=== PATIENT | female | born 1980 | race American Indian/Alaskan Native ===

== ENCOUNTER 2016-09-15 08:14 | Emergency (ER) | payer MEDICAID ==
[2016-09-15 09:21] LABS: Basophils % (Auto) 0.7 % (0.0-1.8); Eosinophils % (Auto) 3.3 % (0.0-4.3); Hematocrit 29.8 % (30.3-42.9); Hemoglobin 9.1 gm/dl (10.1-14.3); Mean Corpuscular HGB Conc 31 % (30-34); Platelet Count 277 K/mm3 (140-440); Red Blood Count 4.66 M/mm3 (3.65-5.03); White Blood Count 9.6 K/mm3 (4.5-11.0)
[2016-09-15 09:35] LABS: Mean Corpuscular Hemoglobin 20 pg (28-32); Mean Corpuscular Volume 64 fl (79-97); Red Cell Distribution Width 20.3 % (13.2-15.2)
[2016-09-15 09:39] LABS: Anion Gap 20 mmol/L; Blood Urea Nitrogen 9 mg/dL (7-17); Carbon Dioxide 23 mmol/L (22-30); Chloride 99.3 mmol/L (98-107); Glucose 90 mg/dL (65-100); Potassium 4.3 mmol/L (3.6-5.0); Sodium 138 mmol/L (137-145)
[2016-09-15 11:41] LABS: Calcium 9.7 mg/dL (8.4-10.2)
--- NOTE | 2016-09-15 22:56 | Emergency Department Report ---
HPI - General Chief Complaint: Chest Pain Time Seen by Provider: 09/15/16 22:38 - HPI HPI: This is a 36-year-old Afro-Mexican female who is about 4 months who presents the emergency department with a 2 to three-day history of intermittent sternal nonradiating chest pain and a one day history of some vaginal spotting. Patient currently denies any chest discomfort. There is been no shortness of breath, back pain, diaphoresis or fever. The vaginal spotting was very mild and she denies any significant abdominal discomfort. Patient is about 4 months . She is with 2 live children and one previous . She is not currently having a [employer] but is taking vitamins. She had not taken anything for symptoms prior to presentation. No recent travel or sick contacts at home. She denies any history of NH, CVA, PE/DVT. ED Past Medical Hx - Past Medical History Hx Asthma: Yes - Surgical History Additional Surgical History: X 2 - Social History Smoking Status: Never Smoker Substance Use Type: None ED Review of Systems ROS: Stated complaint: 4 MO PREG/BLEEDING/CHEST PAIN Other details as noted in HPI Comment: All other systems reviewed and negative Constitutional: denies: chills, fever Eyes: denies: eye pain, eye discharge, vision change ENT: denies: ear pain, throat pain Respiratory: denies: cough, shortness of breath, wheezing Cardiovascular: chest pain. denies: palpitations Gastrointestinal: denies: abdominal pain, diarrhea Genitourinary: denies: urgency, dysuria, discharge Musculoskeletal: denies: back pain, joint swelling, arthralgia Skin: denies: rash, lesions Neurological: denies: headache, weakness, paresthesias Physical Exam - Physical Exam Vital Signs: Vital Signs 09/15/16 09/15/16 08:52 22:51 Temperature 98.0 F 97.9 F Pulse Rate 67 80 Respiratory 18 14 Rate Blood Pressure 111/74 Blood Pressure 132/76 [Left] O2 Sat by Pulse 100 100 Oximetry Physical Exam: GENERAL: The patient is well-developed well-nourished. HEENT: Normocephalic. Atraumatic. Extraocular motions are intact. Patient has moist mucous membranes. Pupils equal reactive to light bilaterally. NECK: Supple. Trachea is midline. CHEST/LUNGS: Clear to auscultation. There is no respiratory distress noted. HEART/CARDIOVASCULAR: Regular. There is no tachycardia. There is no gallop rub or murmur. ABDOMEN: Abdomen is soft, nontender. Patient has normal bowel sounds. There is no abdominal distention. SKIN: Warm and dry. NEURO: The patient is awake, alert, and oriented. The patient is cooperative. The patient has no focal neurologic deficits. The patient has normal speech. No gait abnormalities. MUSCULOSKELETAL: There is no tenderness or deformity. There is no limitation range of motion. There is no evidence of acute injury. ED Course Vital Signs 09/15/16 09/15/16 08:52 22:51 Temperature 98.0 F 97.9 F Pulse Rate 67 80 Respiratory 18 14 Rate Blood Pressure 111/74 Blood Pressure 132/76 [Left] O2 Sat by Pulse 100 100 Oximetry ED Medical Decision Making - Lab Data Result diagrams: 09/15/16 09:04 09/15/16 09:04 - EKG Data -: EKG Interpreted by Mi EKG shows normal: sinus rhythm, axis, intervals, QRS complexes, ST-T waves Rate: normal - EKG Data When compared to previous EKG there are: previous EKG unavailable Interpretation: normal EKG - Radiology Data Radiology results: report reviewed Intestinal/ ultrasound shows no evidence of intrauterine and a questionable uterine leiomyoma. - Medical Decision Making This is a 36-year-old female who presents the emergency department with 2 complaints. First the patient has been having some intermittent midsternal nonradiating chest pain over the past few days. However by the time the patient has gotten back to the main portion of the emergency department, she no longer has any chest pain. She never had any shortness of breath. Her EKG is normal sinus rhythm without any ST elevation NH, ischemia or dysrhythmia. Patient has negative troponins 3. She is low on the well's score criteria negative for the pulmonary elbows rule out criteria. The patient's second complaint is that she is allegedly about 4 months and had some spotting starting today. Patient was sent for a transvaginal/ ultrasound came back showing no evidence of intrauterine . After this, a quantitative beta hCG was obtained that was less than 2 which is basically 0. This either means that the patient had a false positive urine test originally or already had a spontaneous miscarriage. She only believed herself to be as she had a positive home test after missing a few menstrual cycles. Patient's vital signs stable throughout her ED course. She does have some mild anemia but not at the level that requires transfusion. She appears safe for discharge home at this time. She was given referrals for primary care and [facility]. She'll return to the ER with any worsening of her symptoms or any acute distress. - Differential Diagnosis costochondritis, NH, , miscarriage, fibroid Critical Care Time: No Critical care attestation.: If time is entered above; I have spent that time in minutes in the direct care of this critically ill patient, excluding procedure time. ED Disposition Clinical Impression: Chest pain Qualifiers: Chest pain type: unspecified Qualified Code(s): R07.9 - Chest pain, unspecified Anemia Qualifiers: Anemia type: unspecified type Qualified Code(s): D64.9 - Anemia, unspecified Fibroid Qualifiers: Uterine leiomyoma location: unspecified location Qualified Code(s): D25.9 - Leiomyoma of uterus, unspecified Disposition: DISCHARGED TO HOME OR SELFCARE Is pt being admited?: No Condition: Stable Instructions: Chest Pain (ED) Additional Instructions: Please follow-up with a primary care doctor in the next few days. Return to the emergency department with any worsening of your symptoms or any acute distress. I have also given you a referral for a [facility] F[facility]RICATOR to follow-up regarding the dysfunctional uterine bleeding and/or abnormal menstrual cycles. Referrals: MONICA PRINGLE MD [Primary Care Provider] - 3-5 Days NAVJOT CHRISTIAN MD [Staff Physician] - 3-5 Days MALU VILLAGOMEZ MD [Staff Physician] - 3-5 Days [facility] [Outside] - 3-5 Days Time of Disposition: 01:45
--- NOTE | 2016-09-15 23:59 | Ultrasound Report ---
FINAL REPORT PROCEDURE: Transabdominal pelvic ultrasound. TECHNIQUE: Real-time transabdominal sonography in multiple planes of pelvis was performed with image documentation. This examination was performed without Doppler. Vascular abnormalities, including ovarian torsion, will not be detectable without Doppler evaluation. CPT 41794 HISTORY: , vaginal bleeding. COMPARISON: No prior studies are available for comparison. FINDINGS: The uterus measures 10.3 centimeters x 5.9 centimeters x 6.3 centimeters. The myometrium is grossly normal. The endometrial echo complex is thickened measuring 2.8 centimeters. There is no definite intrauterine gestational sac identified. The right ovary is not adequately visualized. The left ovary is unremarkable. There is no fluid in the cul-de-sac. IMPRESSION: No definite intrauterine . Correlation with quantitative beta HCG value recommended.
--- NOTE | 2016-09-16 00:09 | Ultrasound Report ---
FINAL REPORT PROCEDURE: Transvaginal pelvic ultrasound. TECHNIQUE: Real-time transvaginal sonography in multiple planes of the pelvis was performed with image documentation. This examination was performed without Doppler. Vascular abnormalities, including ovarian torsion, will not be detectable without Doppler evaluation. CPT 71899 HISTORY: with vaginal bleeding. COMPARISON: No prior studies are available for comparison. FINDINGS: The myometrium is inhomogeneous. There may be a uterine fibroid present posteriorly. The endometrial echo complex is thickened. There is no evidence of a gestational sac. Correlation with a quantitative beta HCG value is recommended. Both ovaries appear normal in size and contain small follicles. There is normal ovarian color flow demonstrated. There is no fluid in the cul-de-sac. IMPRESSION: No evidence of an intrauterine . Question uterine leiomyoma.
[2016-09-16 00:23] LABS: Bacteria,Urine 1+ /HPF (Negative); Bilirubin,Urine NEG (Negative); Blood,Urine LG (Negative); Ketones,Urine 80 mg/dL (Negative); Leukocyte Esterase,Urine TR (Negative); Mucus,Urine FEW /HPF; Nitrite,Urine NEG (Negative); Urobilinogen,Urine < 2.0 mg/dL (<2.0)
[2016-09-16 00:24] LABS: RBC,Urine > 182.0 /HPF (0.0-6.0)
[2016-09-16] MEDS ORDERED: MACROBID PO ONE (00:33)
[2016-09-16 01:52] VITALS: BP 122/81
== END 2016-09-16 01:56 | disposition home or self-care (01) ==
LOC: ED 08:14
DX: O26.851 Spotting complicating pregnancy, first trimester (principal); R07.9 Chest pain, unspecified; D64.9 Anemia, unspecified; J45.909 Unspecified asthma, uncomplicated; D25.9 Leiomyoma of uterus, unspecified; Z3A.01 Less than 8 weeks gestation of pregnancy
CPT/HCPCS: 36415; 76801; 76817; 80048; 81001; 81025; 84484; 84702; 85025; 93005; 93010

== ENCOUNTER 2017-04-17 20:17 | Emergency (ER) | payer MEDICAID | END 2017-04-17 21:16 | disposition left against medical advice (07) | LOC: ED 20:17 | DX: R03.0 Elevated blood-pressure reading, without diagnosis of hypertension (principal); Z53.21 Procedure and treatment not carried out due to patient leaving prior to being seen by health care provider ==

== ENCOUNTER 2017-11-08 11:33 | Emergency (ER) | payer MEDICAID, OTHER ==
[2017-11-08 11:45] VITALS: BP 112/68
[2017-11-08] MEDS ORDERED: ZOFRAN ODT PO ONE ×2 (13:23→13:25)
[2017-11-08] MEDS ORDERED: ZOFRAN ODT ONE (13:28)
--- NOTE | 2017-11-08 13:38 | Emergency Department Report ---
Chief Complaint: Nausea/Vomiting/Diarrhea Stated Complaint: NAUSEA/VOMITING Time Seen by Provider: 11/08/17 12:55 - HPI History of Present Illness: 7-year-old female presents to the emergency department with complaint of a one-week history of nausea and vomiting that has been getting gradually worse. Now she feels slightly dizzy. She denies any abdominal pain other than some soreness from the vomiting. She has not taken anything for her symptoms by presentation. She has a primary care physician but has not seen them regarding symptoms. No recent travel or sick contacts at home. - ROS Review of Systems: Positive for nausea, vomiting Negative for fever, vaginal bleeding or discharge, dysuria - Exam Vital Signs: Vital Signs 11/08/17 11:43 Temperature 98.4 F Pulse Rate 73 Respiratory 18 Rate Blood Pressure 112/68 O2 Sat by Pulse 100 Oximetry Physical Exam: Patient is awake and alert. Heart and lungs sounds are normal and auscultation. Patient was seen running to the bathroom to vomit. MSE screening note: Focused history and physical exam performed. Due to findings the following was ordered: I have ordered a CBC, CMP, lipase, urinalysis and test. Patient was given Zofran ODT. I would have preferred to do IV Zofran and IV fluid resuscitation but the patient has to leave and 20 minutes to miner pick her children from school. ED Disposition for MSE Condition: Stable Referrals: PRIMARY MD PINO [Primary Care Provider] - 3-5 Days
[2017-11-08 13:48] LABS: Bilirubin,Urine NEG (Negative); Blood,Urine NEG (Negative); Color,Urine Yellow (Yellow); Mucus,Urine FEW /HPF; Urobilinogen,Urine < 2.0 mg/dL (<2.0)
[2017-11-08 14:18] LABS: Basophils # (Auto) 0.1 K/mm3 (0.0-0.1); Basophils % (Auto) 1.2 % (0.0-1.8); Eosinophils # (Auto) 0.1 K/mm3 (0.0-0.4); Eosinophils % (Auto) 2.1 % (0.0-4.3); Lymphocytes # (Auto) 1.8 K/mm3 (1.2-5.4); Lymphocytes % (Auto) 25.8 % (13.4-35.0); Mean Corpuscular HGB Conc 30 % (30-34); Monocytes # (Auto) 0.9 K/mm3 (0.0-0.8); Monocytes % (Auto) 13.2 % (0.0-7.3); Platelet Count 319 K/mm3 (140-440); Red Blood Count 4.71 M/mm3 (3.65-5.03); Red Cell Distribution Width 19.8 % (13.2-15.2)
[2017-11-08 14:21] LABS: Hematocrit 29.3 % (30.3-42.9); Hemoglobin 8.7 gm/dl (10.1-14.3); Mean Corpuscular Hemoglobin 19 pg (28-32); Mean Corpuscular Volume 62 fl (79-97)
[2017-11-08 14:45] LABS: Alanine Aminotransferase 11 units/L (7-56); Albumin 4.6 g/dL (3.9-5); BUN/Creatinine Ratio 15; Blood Urea Nitrogen 9 mg/dL (7-17); Calcium 9.8 mg/dL (8.4-10.2); Hemolysis Index 1
== END 2017-11-08 17:01 ==
LOC: ED 11:33
DX: R11.2 Nausea with vomiting, unspecified (principal); Z53.21 Procedure and treatment not carried out due to patient leaving prior to being seen by health care provider
CPT/HCPCS: 36415; 80053; 81001; 83690; 84702; 85025; Q0162

== ENCOUNTER 2017-11-10 21:17 | Emergency (ER) | payer OTHER ==
[2017-11-10 23:14] LABS: Basophils # (Auto) 0.1 K/mm3 (0.0-0.1); Eosinophils # (Auto) 0.4 K/mm3 (0.0-0.4); Eosinophils % (Auto) 5.3 % (0.0-4.3); Hematocrit 28.2 % (30.3-42.9); Hemoglobin 8.8 gm/dl (10.1-14.3); Lymphocytes # (Auto) 2.7 K/mm3 (1.2-5.4); Lymphocytes % (Auto) 34.2 % (13.4-35.0); Mean Corpuscular HGB Conc 31 % (30-34); Monocytes # (Auto) 1.1 K/mm3 (0.0-0.8); Monocytes % (Auto) 14.2 % (0.0-7.3); Platelet Count 292 K/mm3 (140-440); Red Blood Count 4.66 M/mm3 (3.65-5.03); Red Cell Distribution Width 19.4 % (13.2-15.2)
[2017-11-10 23:16] LABS: Mean Corpuscular Hemoglobin 19 pg (28-32); Mean Corpuscular Volume 60 fl (79-97)
[2017-11-10 23:17] LABS: Bilirubin,Urine NEG (Negative); Blood,Urine NEG (Negative); Color,Urine Yellow (Yellow)
[2017-11-10 23:20] LABS: HCG Qualitative,Urine Negative (Negative)
[2017-11-10 23:57] LABS: Alanine Aminotransferase 11 units/L (7-56); BUN/Creatinine Ratio 18; Blood Urea Nitrogen 11 mg/dL (7-17); Calcium 9.8 mg/dL (8.4-10.2); Hemolysis Index 0
--- NOTE | 2017-11-11 00:57 | Emergency Department Report ---
ED Abdominal Pain HPI - General Chief Complaint: Abdominal Pain Stated Complaint: STOMACH PAIN,VOMITING Time Seen by Provider: 11/11/17 00:55 Source: patient Mode of arrival: Ambulatory Limitations: No Limitations - History of Present Illness Initial Comments: 37-year-old -Armenian female comes into the ED complaining of lower abdominal pain nausea and vomiting for the last couple weeks. Patient ovaries recently seen on the fourth of this month for nausea and vomiting for a few weeks. Patient denies any fever denies any dysuria. Patient reports that she is having lower abdominal pain and groin pain worse with sneezing and coughing better with nothing she reports that the pain is sharp, constant no recent travels. She is sexually active with males protected one partner in the last 6 months. She also complains of dizziness. Patient denies any vaginal discharge reports that she is not able to eat or drink but can keep iced down. Patient's last menstrual period was 10/07/2017. She has a primary care provider but not has seen her for these symptoms. Patient has a past medical history of asthma currently takes no medications and has an allergy to penicillin. MD Complaint: abdominal pain - Related Data Allergies Allergy/AdvReac Type Severity Reaction Status Date / Time Penicillins Allergy Rash Verified 11/08/17 11:42 ED Review of Systems ROS: Stated complaint: STOMACH PAIN,VOMITING Other details as noted in HPI ED Past Medical Hx - Past Medical History Previous Medical History?: Yes Hx Asthma: Yes - Surgical History Past Surgical History?: Yes Additional Surgical History: X 2 - Social History Smoking Status: Never Smoker Substance Use Type: None ED Physical Exam - General Limitations: No Limitations ED Course Vital Signs 11/10/17 22:32 Temperature 98.2 F Pulse Rate 77 Respiratory 18 Rate Blood Pressure 126/70 O2 Sat by Pulse 100 Oximetry ED Medical Decision Making - Lab Data Result diagrams: 11/10/17 23:06 11/10/17 23:06 - Radiology Data Radiology results: report reviewed, image reviewed FINDINGS: Partially visualized intrathoracic contents are unremarkable. The liver, gallbladder, pancreas, spleen, and adrenal glands are unremarkable. Left renal ptosis. No hydroureteronephrosis or nephrolithiasis. No stones in the urinary bladder. Anteverted uterus. Functional left ovarian cyst measures approximately 2.3 cm in greatest dimension. Small and large bowel are normal in caliber. Appendix is predominantly fluid-filled and normal in caliber without thickened wall. Trace free fluid in the pelvis and right lower quadrant, which may be physiologic. No pneumoperitoneum or focal fluid collection. No mesenteric lymphadenopathy identified. Aorta is normal in course and caliber. Superficial soft tissues are unremarkable. No acute or aggressive appearing skeletal findings. IMPRESSION: Functional left ovarian cyst measures up to around 2.3 cm in greatest dimension. No acute gastrointestinal process identified. Left renal ptosis. Transcribed By: MB Dictated By: KARI ESPINOSA MD Electronically Authenticated By: KARI ESPINOSA MD Signed Date/Time: 11/11/17 4428 Critical care attestation.: If time is entered above; I have spent that time in minutes in the direct care of this critically ill patient, excluding procedure time. ED Disposition Clinical Impression: Left ovarian cyst, Floating kidney Disposition: - TO HOME OR SELFCARE Is pt being admited?: No Does the pt Need Aspirin: No Condition: Stable Instructions: Abdominal Pain (ED) Additional Instructions: Please follow up with her primary care provider. It's very important for you to follow up with urology and surgery for your kidney. you can take Tylenol for pain. Referrals: MONICA PRINGLE MD [Primary Care Provider] - 3-5 Days BRYSON PATEL MD [Staff Physician] - 3-5 Days JACQUELINE PRO MD [Referring] - 3-5 Days DESTINY STEVENSON MD [Staff Physician] - 3-5 Days Forms: Work/School Release Form(ED)
[2017-11-11] MEDS ORDERED: NACL 0.9% 1000 ML 1,000 ML IV ONE (01:02)
[2017-11-11] MEDS ORDERED: ZOFRAN IV ONE (01:02)
[2017-11-11 01:27] LABS: Albumin 4.8 g/dL (3.9-5)
--- NOTE | 2017-11-11 04:16 | Cat Scan Report ---
FINAL REPORT EXAM: CT ABDOMEN PELVIS W CON HISTORY: lower abdominal pain with nausea and vomiting TECHNIQUE: CT images are acquired through the Abdomen and Pelvis following intravenous administration of contrast. Transaxial, coronal and sagittal reformations are provided. PRIORS: None FINDINGS: Partially visualized intrathoracic contents are unremarkable. The liver, gallbladder, pancreas, spleen, and adrenal glands are unremarkable. Left renal ptosis. No hydroureteronephrosis or nephrolithiasis. No stones in the urinary bladder. Anteverted uterus. Functional left ovarian cyst measures approximately 2.3 cm in greatest dimension. Small and large bowel are normal in caliber. Appendix is predominantly fluid-filled and normal in caliber without thickened wall. Trace free fluid in the pelvis and right lower quadrant, which may be physiologic. No pneumoperitoneum or focal fluid collection. No mesenteric lymphadenopathy identified. Aorta is normal in course and caliber. Superficial soft tissues are unremarkable. No acute or aggressive appearing skeletal findings. IMPRESSION: Functional left ovarian cyst measures up to around 2.3 cm in greatest dimension. No acute gastrointestinal process identified. Left renal ptosis.
[2017-11-11 06:15] VITALS: BP 104/66
== END 2017-11-11 04:45 | disposition home or self-care (01) ==
LOC: ED 21:17
DX: N83.202 Unspecified ovarian cyst, left side (principal); N28.89 Other specified disorders of kidney and ureter; J45.909 Unspecified asthma, uncomplicated; R42 Dizziness and giddiness; Z88.0 Allergy status to penicillin
CPT/HCPCS: 36415; 74177; 80053; 81001; 81025; 84702; 85025; 96361; 96374; 99284; J2405; J7030; Q9967

== ENCOUNTER 2017-12-09 23:15 | Emergency (ER) | payer OTHER ==
[2017-12-10 05:34] LABS: Basophils # (Auto) 0.1 K/mm3 (0.0-0.1); Basophils % (Auto) 0.9 % (0.0-1.8); Eosinophils # (Auto) 0.4 K/mm3 (0.0-0.4); Eosinophils % (Auto) 6.6 % (0.0-4.3); Hemoglobin 7.7 gm/dl (10.1-14.3); Lymphocytes # (Auto) 2.2 K/mm3 (1.2-5.4); Mean Corpuscular HGB Conc 32 % (30-34); Monocytes # (Auto) 0.9 K/mm3 (0.0-0.8); Platelet Count 240 K/mm3 (140-440); Red Cell Distribution Width 19.3 % (13.2-15.2)
[2017-12-10 05:37] LABS: Mean Corpuscular Hemoglobin 19 pg (28-32); Mean Corpuscular Volume 59 fl (79-97)
[2017-12-10 05:54] LABS: Alanine Aminotransferase 15 units/L (7-56); Albumin 4.3 g/dL (3.9-5); BUN/Creatinine Ratio 23; Blood Urea Nitrogen 16 mg/dL (7-17); Calcium 9.2 mg/dL (8.4-10.2); Hemolysis Index 2
--- NOTE | 2017-12-10 16:36 | Emergency Department Report ---
ED Abdominal Pain HPI - General Chief Complaint: Abdominal Pain Stated Complaint: DIZZY,HEADACHE,SOB Time Seen by Provider: 12/10/17 16:36 Source: patient Mode of arrival: Ambulatory Limitations: No Limitations - History of Present Illness MD Complaint: abdominal pain -: Gradual, month(s) (2) Location: LUQ Radiation: none Migration to: no migration Severity: moderate Severity scale (0 -10): 6 Quality: sharp Consistency: constant Improves With: nothing Worsens With: nothing Associated Symptoms: denies other symptoms - Related Data Previous Rx's Medication Instructions Recorded Last Taken Type Docusate Sodium [Colace] 100 mg PO BID #60 capsule 12/10/17 Unknown Rx Ferrous Sulfate [Feosol 325 MG tab] 325 mg PO BID #60 tablet 12/10/17 Unknown Rx Allergies Allergy/AdvReac Type Severity Reaction Status Date / Time Penicillins Allergy Rash Verified 11/08/17 11:42 ED Review of Systems ROS: Stated complaint: DIZZY,HEADACHE,SOB Other details as noted in HPI Comment: All other systems reviewed and negative Constitutional: denies: chills, fever Eyes: vision change ENT: denies: ear pain Respiratory: denies: cough, shortness of breath Cardiovascular: denies: chest pain, palpitations Endocrine: no symptoms reported Gastrointestinal: abdominal pain. denies: nausea, vomiting, diarrhea Genitourinary: denies: dysuria, frequency, hematuria Musculoskeletal: denies: back pain, joint swelling Skin: denies: lesions, change in color Neurological: denies: headache, weakness, numbness, paresthesias Psychiatric: denies: anxiety, depression Hematological/Lymphatic: denies: easy bleeding, easy bruising ED Past Medical Hx - Past Medical History Previous Medical History?: Yes Hx Asthma: Yes - Surgical History Past Surgical History?: Yes Additional Surgical History: X 2 - Social History Smoking Status: Never Smoker - Medications Home Medications: Home Medications Medication Instructions Recorded Confirmed Last Taken Type Docusate Sodium [Colace] 100 mg PO BID #60 capsule 12/10/17 Unknown Rx Ferrous Sulfate [Feosol 325 MG tab] 325 mg PO BID #60 tablet 12/10/17 Unknown Rx ED Physical Exam - General Limitations: No Limitations General appearance: alert, in no apparent distress - Head Head exam: Present: atraumatic, normocephalic, normal inspection - Eye Eye exam: Present: normal appearance, PERRL, EOMI Pupils: Present: normal accommodation - ENT ENT exam: Present: normal exam, normal orophraynx, mucous membranes moist - Neck Neck exam: Present: normal inspection, tenderness, full ROM - Respiratory Respiratory exam: Present: normal lung sounds bilaterally. Absent: respiratory distress, wheezes, rhonchi - Cardiovascular Cardiovascular Exam: Present: regular rate, normal rhythm, normal heart sounds - GI/Abdominal GI/Abdominal exam: Present: soft, tenderness (LUQ). Absent: distended, guarding , rebound, normal bowel sounds - Rectal Rectal exam: Present: deferred - Extremities Exam Extremities exam: Present: normal inspection - Back Exam Back exam: Present: normal inspection, full ROM. Absent: tenderness - Neurological Exam Neurological exam: Present: alert, oriented X3, CN II-XII intact - Psychiatric Psychiatric exam: Present: normal affect, normal mood - Skin Skin exam: Present: warm, dry, intact, normal color ED Course Vital Signs 12/10/17 12/10/17 12/10/17 04:57 11:01 21:09 Temperature 98.6 F 98.5 F 97.8 F Pulse Rate 72 59 L 62 Respiratory 20 15 16 Rate Blood Pressure 103/59 Blood Pressure 108/70 106/69 [Right] O2 Sat by Pulse 100 100 100 Oximetry ED Medical Decision Making - Lab Data Result diagrams: 12/10/17 05:18 12/10/17 05:17 - EKG Data -: EKG Interpreted by Nh EKG shows normal: sinus rhythm Rate: normal (66) - EKG Data When compared to previous EKG there are: previous EKG unavailable Interpretation: normal EKG - Radiology Data Radiology results: report reviewed, image reviewed - Medical Decision Making Chronic LUQ abdominal Pain. Anemia. Critical care attestation.: If time is entered above; I have spent that time in minutes in the direct care of this critically ill patient, excluding procedure time. ED Disposition Clinical Impression: Symptomatic anemia Abdominal pain Qualifiers: Abdominal location: unspecified location Qualified Code(s): R10.9 - Unspecified abdominal pain Iron deficiency anemia Qualifiers: Iron deficiency anemia type: unspecified iron deficiency Qualified Code(s): D50.9 - Iron deficiency anemia, unspecified Disposition: TO HOME OR SELFCARE Is pt being admited?: No Does the pt Need Aspirin: No Condition: Stable Instructions: Iron Deficiency Anemia (ED), Abdominal Pain (ED) Additional Instructions: Follow up with your regular doctor tomorrow morning. Return to the ED if your condition worsens. Prescriptions: Docusate Sodium [Colace] 100 mg PO BID #60 capsule Ferrous Sulfate [Feosol 325 MG tab] 325 mg PO BID #60 tablet Referrals: PRIMARY CARE, [Primary Care Provider] - 3-5 Days STEPHIE TILLEY JR, MD [Staff Physician] - 3-5 Days Time of Disposition: 21:42
[2017-12-10] MEDS ORDERED: ZOFRAN ONE (17:48)
[2017-12-10] MEDS ORDERED: ZOFRAN ODT PO ONE (17:49)
[2017-12-10] MEDS ORDERED: ZOFRAN ODT ONE (17:49)
[2017-12-10 21:10] VITALS: BP 106/69
--- NOTE | 2017-12-10 21:13 | Cat Scan Report ---
FINAL REPORT EXAM: CT ABDOMEN PELVIS W CON HISTORY: abdominal pain TECHNIQUE: Standard enhanced CT of the abdomen and pelvis. Coronal and sagittal reconstruction was also performed. Delayed imaging through the kidneys and bladder was obtained. Contrast: 100 mL Omnipaque 300 given IV. Oral contrast given PRIORS: CT a/P 11/11/2017 FINDINGS: Within the abdomen, the liver, spleen, pancreas, gallbladder, adrenal glands, and right kidney are unremarkable. There is ptosis of the left kidney, unchanged. No evidence for retroperitoneal or pelvic lymphadenopathy is seen. The bowel loops have normal caliber. No soft tissue mass, fluid collection, inflammatory change, or free air is seen within the abdomen or pelvis. The appendix is normal. Within the pelvis, the bladder is unremarkable. The uterus is markedly enlarged, particularly the fundus. Findings suggest an underlying fibroid. There is an involuting left ovarian cyst measuring 1.7 cm. Images through the upper abdomen include the lung bases which are expanded and clear. Bony structures show no focal abnormalities and are intact. IMPRESSION: 1. no acute intra-abdominal process noted. No interval change. 2. Involuting left ovarian cyst 3. Enlarged uterus particularly in the fundus, likely due to underlying fibroid formation.
== END 2017-12-10 22:19 | disposition home or self-care (01) ==
LOC: ED 23:15
DX: D50.9 Iron deficiency anemia, unspecified (principal); R10.12 Left upper quadrant pain; G89.29 Other chronic pain; R06.02 Shortness of breath; J45.909 Unspecified asthma, uncomplicated; Z88.0 Allergy status to penicillin
CPT/HCPCS: 36415; 74177; 80053; 83690; 84703; 85025; 86850; 86900; 86901; 93005; 93010; 99284; J2405; Q9967; Q0162

== ENCOUNTER 2018-10-03 12:47 | Emergency (ER) | payer OTHER ==
[2018-10-03 13:10] LABS: Hematocrit 24.4 % (30.3-42.9); Hemoglobin 7.6 gm/dl (10.1-14.3); Mean Corpuscular HGB Conc 31 % (30-34); Platelet Count 203 K/mm3 (140-440); Red Blood Count 4.02 M/mm3 (3.65-5.03); Red Cell Distribution Width 19.2 % (13.2-15.2)
[2018-10-03 13:16] LABS: Mean Corpuscular Volume 61 fl (79-97)
[2018-10-03] MEDS ORDERED: TORADOL IM ONE (13:38)
[2018-10-03 13:39] LABS: BUN/Creatinine Ratio 11; Blood Urea Nitrogen 8 mg/dL (7-17)
[2018-10-03 13:40] LABS: Calcium 8.8 mg/dL (8.4-10.2); Hemolysis Index 28
--- NOTE | 2018-10-03 13:50 | XRay Report ---
ROUTINE CHEST, TWO VIEWS: HISTORY: chest pain. The trachea, heart, mediastinal contour, lung cruz and bony thorax are unremarkable. IMPRESSION: Unremarkable chest x-ray.
[2018-10-03 14:34] LABS: Total Cells Counted 100
[2018-10-03 14:35] LABS: Anisocytosis 2+; Poikilocytosis 1+
[2018-10-03 14:36] LABS: Giant Platelets Rare; Hypochromasia 2+; Ovalocytes Rare; Platelet Estimate Consistent w Auto; Target Cells 1+
[2018-10-03 14:48] LABS: Bacteria,Urine 1+ /HPF (Negative); Bilirubin,Urine NEG (Negative); Blood,Urine NEG (Negative); Color,Urine Yellow (Yellow); Mucus,Urine FEW /HPF; Protein,Urine <15 mg/dL mg/dL (Negative); Urobilinogen,Urine < 2.0 mg/dL (<2.0)
[2018-10-03 14:50] LABS: HCG Qualitative,Urine Negative (Negative)
[2018-10-03 14:51] LABS: Amphetamine Screen,Urine PRESUMPTIVE NEGATIVE; Benzodiazepines Screen,Urine PRESUMPTIVE NEGATIVE; Cocaine Screen,Urine PRESUMPTIVE NEGATIVE; Methadone Screen,Urine PRESUMPTIVE NEGATIVE; Opiate Screen,Urine PRESUMPTIVE NEGATIVE
[2018-10-03 15:12] LABS: Cannabinoid Screen,Urine PRESUMPTIVE POSITIVE
--- NOTE | 2018-10-03 15:17 | Emergency Department Report ---
ED Chest Pain HPI - General Chief Complaint: Chest Pain Stated Complaint: RT FOOT PAIN,CHEST PAIN Time Seen by Provider: 10/03/18 13:11 Source: patient Mode of arrival: Ambulatory Limitations: No Limitations - History of Present Illness Initial Comments: Patient is a 38-year-old female who is presenting with atypical chest pain. Patient states that she has a history of chronic back pain and is having pain now but she states that she's having chest pain currently. Patient states her upper back as her for years however now she is having upper chest pain for the past 2 days is continuous. States she has mild shortness of breath but has no pleuritic component to her pain and no increased pain with exertion. States she has very minimal cough. Patient denies any diarrhea no nausea vomiting fever or sore throat. Patient also is complaining of some pain at the bottom of her right foot Severity scale (0 -10): 10 - Related Data Previous Rx's Medication Instructions Recorded Last Taken Type Docusate Sodium [Colace] 100 mg PO BID #60 capsule 12/10/17 Unknown Rx Ferrous Sulfate [Feosol 325 MG tab] 325 mg PO BID #60 tablet 12/10/17 Unknown Rx ALBUTEROL Inhaler(NF) [VENTOLIN 1 puff IH Q4HRT PRN #1 inha 10/03/18 Unknown Rx Inhaler(NF)] Ibuprofen [Ibu] 600 mg PO Q6HR PRN #20 tablet 10/03/18 Unknown Rx Allergies Allergy/AdvReac Type Severity Reaction Status Date / Time Penicillins Allergy Rash Verified 10/03/18 12:49 Heart Score - HEART Score History: Slightly suspicious EKG: Normal Age: < 45 Risk factors: No known risk factors Troponin: < normal limit HEART Score: 0 ED Review of Systems ROS: Stated complaint: RT FOOT PAIN,CHEST PAIN Other details as noted in HPI Comment: All other systems reviewed and negative ED Past Medical Hx - Past Medical History Hx Asthma: Yes - Surgical History Additional Surgical History: X 2 - Social History Smoking Status: Never Smoker Substance Use Type: None - Medications Home Medications: Home Medications Medication Instructions Recorded Confirmed Last Taken Type Docusate Sodium [Colace] 100 mg PO BID #60 capsule 12/10/17 Unknown Rx Ferrous Sulfate [Feosol 325 MG tab] 325 mg PO BID #60 tablet 12/10/17 Unknown Rx ALBUTEROL Inhaler(NF) [VENTOLIN 1 puff IH Q4HRT PRN #1 inha 10/03/18 Unknown Rx Inhaler(NF)] Ibuprofen [Ibu] 600 mg PO Q6HR PRN #20 tablet 10/03/18 Unknown Rx ED Physical Exam - General Limitations: No Limitations General appearance: alert, in no apparent distress - Head Head exam: Present: atraumatic, normocephalic - Eye Eye exam: Present: normal appearance, PERRL, EOMI - ENT ENT exam: Present: mucous membranes moist - Neck Neck exam: Present: normal inspection - Respiratory Respiratory exam: Present: normal lung sounds bilaterally. Absent: respiratory distress, wheezes, rales, rhonchi, stridor - Cardiovascular Cardiovascular Exam: Present: regular rate, normal rhythm. Absent: systolic murmur, diastolic murmur, rubs, gallop - GI/Abdominal GI/Abdominal exam: Present: soft, normal bowel sounds. Absent: distended, tenderness, guarding, rebound, rigid - Extremities Exam Extremities exam: Present: normal inspection - Back Exam Back exam: Present: normal inspection - Neurological Exam Neurological exam: Present: alert, oriented X3 - Psychiatric Psychiatric exam: Present: normal affect, normal mood - Skin Skin exam: Present: warm, dry, intact, normal color. Absent: rash ED Course Vital Signs 10/03/18 10/03/18 12:51 14:29 Temperature 98 F Pulse Rate 87 Respiratory 18 18 Rate Blood Pressure 103/59 O2 Sat by Pulse 100 Oximetry ED Medical Decision Making - Lab Data Result diagrams: 10/03/18 13:01 10/03/18 13:01 - EKG Data -: EKG Interpreted by Al EKG shows normal: sinus rhythm, axis, intervals, QRS complexes, ST-T waves Rate: normal - EKG Data Interpretation: normal EKG - Radiology Data Radiology results: report reviewed (CXR WNL) - Medical Decision Making Patient had a negative d-dimer and negative troponin and chest x-ray is within normal limits and the EKG is within normal limits as well. Patient is not having a myocardial infarction. Pain is very atypical for acute coronary syndrome. Patient is not wheezing despite her history of asthma. Patient will be discharged home with follow-up with cardiology Critical care attestation.: If time is entered above; I have spent that time in minutes in the direct care of this critically ill patient, excluding procedure time. ED Disposition Clinical Impression: Atypical chest pain Disposition: DC-01 TO HOME OR SELFCARE Is pt being admited?: No Does the pt Need Aspirin: No Condition: Stable Instructions: Chest Pain (ED) Referrals: NAZARIO FOSTER MD [Staff Physician] - 3-5 Days Time of Disposition: 15:18
[2018-10-03 15:56] VITALS: BP 132/81
== END 2018-10-03 15:56 | disposition home or self-care (01) ==
LOC: ED 12:47
DX: R07.89 Other chest pain (principal); J45.909 Unspecified asthma, uncomplicated; Z88.0 Allergy status to penicillin
CPT/HCPCS: 36415; 71046; 80048; 80307; 81001; 81025; 84484; 85007; 85025; 85379; 93005; 93010; 96372; 99284; J1885

== ENCOUNTER 2019-02-11 23:44 | Emergency (ER) | payer OTHER ==
[2019-02-12 00:02] VITALS: BP 112/63
[2019-02-12] MEDS ORDERED: TORADOL IM ONE (02:37)
--- NOTE | 2019-02-12 02:55 | Emergency Department Report ---
ED Back Pain/Injury HPI - General Chief Complaint: Back Pain/Injury Stated Complaint: BACK PAIN,HEADACHE, RIGHT FOOT PAIN Time Seen by Provider: 02/12/19 02:25 Source: patient Limitations: No Limitations - History of Present Illness Initial Comments: Patient is a 38-year-old [place] female who presents for chronic back pain states intermittent backaches since 2007 status post epidural for vaginal delivery patient denies acute fall injury or trauma there is no numbness no tingling or loss or decrease in bowel or bladder function patient remains ambulatory to baseline per patient pain described as 4/10 aching burning exacerbated by bending twisting and lifting heavy boxes patient in no acute distress at this time has not taken [id number] NSAIDs. MD Complaint: back pain -: days(s) Place: home Radiation: none Severity: moderate Severity scale (0 -10): 5 Quality: aching Consistency: constant Improves With: none Worsens With: movement, walking Associated Symptoms: denies other symptoms. denies: incontinence, constipation - Related Data Previous Rx's Medication Instructions Recorded Last Taken Type Docusate Sodium [Colace] 100 mg PO BID #60 capsule 12/10/17 Unknown Rx Ferrous Sulfate [Feosol 325 MG tab] 325 mg PO BID #60 tablet 12/10/17 Unknown Rx ALBUTEROL Inhaler(NF) [VENTOLIN 1 puff IH Q4HRT PRN #1 inha 10/03/18 Unknown Rx Inhaler(NF)] Ibuprofen [Ibu] 600 mg PO Q6HR PRN #20 tablet 10/03/18 Unknown Rx Cyclobenzaprine [Flexeril] 10 mg PO TID PRN #30 tablet 02/12/19 Unknown Rx Menthol/Camphor [[place] 1 applicatio TP QID PRN #1 tube 02/12/19 Unknown Rx Ointment] Naproxen [Naprosyn TAB] 500 mg PO BID PRN #30 tablet 02/12/19 Unknown Rx Allergies Allergy/AdvReac Type Severity Reaction Status Date / Time Penicillins Allergy Rash Verified 10/03/18 12:49 ED Review of Systems ROS: Stated complaint: BACK PAIN,HEADACHE, RIGHT FOOT PAIN Other details as noted in HPI Constitutional: denies: chills, fever Eyes: denies: eye pain, eye discharge, vision change ENT: denies: ear pain, throat pain Respiratory: denies: cough, shortness of breath, wheezing Cardiovascular: denies: chest pain, palpitations Endocrine: no symptoms reported Gastrointestinal: denies: abdominal pain, nausea, diarrhea Genitourinary: denies: urgency, dysuria, discharge Musculoskeletal: back pain, arthralgia. denies: joint swelling, myalgia Skin: denies: rash, lesions Neurological: denies: headache, weakness, paresthesias Psychiatric: denies: anxiety, depression Hematological/Lymphatic: denies: easy bleeding, easy bruising ED Past Medical Hx - Past Medical History Previous Medical History?: Yes Hx Asthma: Yes - Surgical History Past Surgical History?: Yes Additional Surgical History: X 2 - Social History Smoking Status: Current Some Day Smoker Substance Use Type: Alcohol - Medications Home Medications: Home Medications Medication Instructions Recorded Confirmed Last Taken Type Docusate Sodium [Colace] 100 mg PO BID #60 capsule 12/10/17 Unknown Rx Ferrous Sulfate [Feosol 325 MG tab] 325 mg PO BID #60 tablet 12/10/17 Unknown Rx ALBUTEROL Inhaler(NF) [VENTOLIN 1 puff IH Q4HRT PRN #1 inha 10/03/18 Unknown Rx Inhaler(NF)] Ibuprofen [Ibu] 600 mg PO Q6HR PRN #20 tablet 10/03/18 Unknown Rx Cyclobenzaprine [Flexeril] 10 mg PO TID PRN #30 tablet 02/12/19 Unknown Rx Menthol/Camphor [[place] 1 applicatio TP QID PRN #1 tube 02/12/19 Unknown Rx Ointment] Naproxen [Naprosyn TAB] 500 mg PO BID PRN #30 tablet 02/12/19 Unknown Rx ED Physical Exam - General Limitations: No Limitations General appearance: alert, in no apparent distress - Head Head exam: Present: atraumatic, normocephalic - Eye Eye exam: Present: normal appearance, PERRL, EOMI Pupils: Present: normal accommodation - ENT ENT exam: Present: mucous membranes moist - Neck Neck exam: Present: normal inspection - Respiratory Respiratory exam: Present: normal lung sounds bilaterally. Absent: respiratory distress, wheezes, stridor, chest wall tenderness - Cardiovascular Cardiovascular Exam: Present: regular rate, normal rhythm, normal heart sounds. Absent: systolic murmur, diastolic murmur, rubs, gallop - GI/Abdominal GI/Abdominal exam: Present: soft, normal bowel sounds. Absent: distended, tenderness, bruit, hernia - Extremities Exam Extremities exam: Present: normal inspection, full ROM, normal capillary refill. Absent: tenderness - Back Exam Back exam: Present: normal inspection, full ROM, muscle spasm, paraspinal tenderness. Absent: tenderness, CVA tenderness (R), CVA tenderness (L), vertebral tenderness, rash noted - Expanded Back Exam Expanded Back exam: Present: other (no posterior vertebral point tenderness). Absent: saddle anesthesia Back exam: Positive Straight Leg Raise: Left, Negative Straight Leg Raising: Right - Neurological Exam Neurological exam: Present: alert, oriented X3, CN II-XII intact, normal gait, reflexes normal. Absent: motor sensory deficit - Expanded Neurological Exam Expanded Patient oriented to: Present: person, place, time Speech: Present: fluid speech Cranial nerves: EOM's Intact: Normal, Gag Reflex: Normal, Tongue Deviation: Normal, Nystagmus: Normal, Facial Sensation: Normal Cerebellar function: Finger to Nose: Normal, Heel to Arellano: Normal Upper motor neuron: Marciano Neglect: Normal, Pronator Drift: Normal, Babinski Sign: Normal, Sensory Extinction: Normal Sensory exam: Upper Extremity Light Touch: Normal, Upper Extremity Pin Prick: Normal, Upper Extremity Temperature: Normal, UE 2 Point Discrimination: Normal, Lower Extremity Light Touch: Normal, Lower Extremity Pin Prick: Normal, Lower Extremity Temperature: Normal, LE 2 Point Discrimination: Normal Motor strength exam: RUE: 5, LUE: 5, RLE: 5, LLE: 5 DTR: bicep (R): 2+, bicep (L): 2+, ankle (R): 2+, ankle (L): 2+ Best Eye Response ([place]): (4) open spontaneously Best Motor Response ([place]): (6) obeys commands Best Verbal Response ([place]): (5) oriented [place] Total: 15 - Psychiatric Psychiatric exam: Present: normal affect, normal mood - Skin Skin exam: Present: warm, dry, intact, normal color. Absent: rash ED Course Vital Signs 02/12/19 00:01 Temperature 98.1 F Pulse Rate 84 Respiratory 18 Rate Blood Pressure 112/63 O2 Sat by Pulse 100 Oximetry ED Medical Decision Making - Medical Decision Making this is acute on chronic back pain , plan, nsaid muscle relaxant analgesic balm moist heat therapy follow up with pcp return to emergency of symptoms worsen. pt dc'd to home in stable condition at this time. Critical care attestation.: If time is entered above; I have spent that time in minutes in the direct care of this critically ill patient, excluding procedure time. ED Disposition Clinical Impression: Back pain Qualifiers: Back pain location: low back pain Chronicity: acute Back pain laterality: right Sciatica presence: with sciatica Sciatica laterality: sciatica of right side Qualified Code(s): M54.41 - Lumbago with sciatica, right side Chronic back pain Qualifiers: Back pain location: low back pain Back pain laterality: right Sciatica presence: with sciatica Sciatica laterality: sciatica of right side Qualified Code(s): M54.41 - Lumbago with sciatica, right side; G89.29 - Other chronic pain Disposition: DC/TX-65 PSY HOSP/PSY UNIT Is pt being admited?: No Does the pt Need Aspirin: No Condition: Stable Instructions: Low Back Strain (ED), Core Strengthening Exercises (GEN), Chronic Back Pain (ED) Prescriptions: Cyclobenzaprine [Flexeril] 10 mg PO TID PRN #30 tablet PRN Reason: Muscle Spasm Naproxen [Naprosyn TAB] 500 mg PO BID PRN #30 tablet PRN Reason: pain Menthol/Camphor [[place] Ointment] 1 applicatio TP QID PRN #1 tube PRN Reason: pain Referrals: SEDA VAUGHAN MD [Staff Physician] - 3-5 Days [facility] [Provider Group] - 3-5 Days Forms: Work/School Release Form(ED) Time of Disposition: 03:06
== END 2019-02-12 03:54 ==
LOC: ED 23:44
DX: G89.29 Other chronic pain (principal); M54.9 Dorsalgia, unspecified; J45.909 Unspecified asthma, uncomplicated; F17.200 Nicotine dependence, unspecified, uncomplicated; Z88.0 Allergy status to penicillin
CPT/HCPCS: J1885